=== PATIENT | male | born 1990 | race Caucasian/White ===

== ENCOUNTER 2024-06-03 18:47 | Emergency (ER) | payer OTHER ==
[2024-06-03] MEDS ORDERED: Lidocaine 1% w/Epinephrine 1:100K 20 ML VIAL ONE (19:02)
[2024-06-03] MEDS ORDERED: Boostrix 0.5 ML (Tdap) VIAL (>/=7 yrs of age) ONE (19:04)
== END 2024-06-03 22:35 | disposition home or self-care (01) ==
LOC: ERS 18:47
DX: S01.81XA Laceration without foreign body of other part of head, initial encounter (principal); V47.5XXA Car driver injured in collision with fixed or stationary object in traffic accident, initial encounter
CPT/HCPCS: 12052; 70450; 70486; 71046; 72125; 90471; 90715; 93005; G0390